=== PATIENT | male | born 1955 | race African-American/Black ===

== ENCOUNTER 2020-01-28 00:47 | Emergency (ER) | payer MEDICARE, OTHER ==
[~2020-01-28] VITALS: Ht 172.7 cm; Wt 84.8 kg
[~2020-01-28 00:47] MED LIST: CYCL50TA PO; DEXA4TAB PO; DICL100G54 TP; FERR-36 PO; FURO40TA4 PO; GABA25PO15 MC; GABA600T7 PO; HYDR-2761 PO; HYDR-3164 PO; LEVO0.5P MC; LEVO100T5 PO; LEVO150T5 PO; LIDO700A4 TP; MIDO10TA PO; NORT10CA PO; NYST100054 PO; OCTR50DI SQ; OPIU10TI PO; OXYC10TA PO; PROC25SU21 RC; immodium PO
[2020-01-28 00:52] VITALS: BP 165/88
[2020-01-28] MEDS ORDERED: LIDOCAINE 2% 20 ML VIAL. ONE (01:40)
[2020-01-28] MEDS ORDERED: BUPIVACAINE MPF 0.5% 30 ML VIAL. INJ ONE (02:00)
[2020-01-28] MEDS ORDERED: LIDOCAINE 2% 20 ML VIAL. IJ ONE (02:00)
[2020-01-28] MEDS ORDERED: NEOMY/BACITR/POLYMYXIN OINT PACKET. TP ONE ×2 (02:05→03:00)
--- NOTE | 2020-01-28 02:27 | PHYS DOC ---
Past Medical History Past Medical History: Cancer, Hypertension Additional Past Medical Histor: chronic diarrhea, amylodosis,pt reports that he is currently on chemotherpy Past Surgical History: Cancer Surgery Additional Past Surgical Histo: CARPAL TUNNEL, THYROID Smoking Status: Never Smoker Alcohol Use: None Drug Use: None General Adult EDM: Chief Complaint: LACERATION/AVULSION HPI: HPI: 64-year-old male past medical history of hyperlipidemia, amyloidosis, lower extremity neuropathy and prediabetes, presents to the ED with complaints of " I caught the supervisor grips's knife with knee," just prior to arrival. States he was using a serrated supervisor grips's knife when he accidentally lost control of it, tried to stopped it from hitting his feet with his knee. Denies any knee dislocation, hyperflexion or hyperextension. Reports tetanus was updated 3 years ago by his primary care physician Dr. Razo. No h/o transfusions. ROS: No associated fever, chills, cough, dyspnea, sore throat, nausea, vomiting, chest pain, sensory, motor deficits or neuro deficits. Current Medications: Current Medications Medications (Trade) Dose Ordered Sig/Lauren Start Time Stop Time Status Last Admin Dose Admin Bupivacaine HCl (Sensorcaine Mpf 0.5%) 30 ml 1X ONCE 01/28/20 02:00 01/28/20 02:01 DC Lidocaine HCl 20 ml 1X ONCE 01/28/20 02:00 01/28/20 02:01 DC Neomycin/ Polymyxin/ Bacitracin (Triple Antibiotic Ointment) 1 pkt STK-MED ONCE 01/28/20 02:05 01/28/20 02:06 DC Allergies: Allergies: Allergies Coded Allergies Type Severity Reaction Last Updated Verified No Known Drug Allergies 09/24/13 No Physical Exam: PE: Constitutional: Well developed, well nourished, no acute distress, non-toxic appearance. [] HENT: Normocephalic, atraumatic, bilateral external ears normal, oropharynx moist, no oral exudates, nose normal. [] Eyes: EOMI, conjunctiva normal, no discharge. [] Neck: Normal range of motion, no tenderness, supple, no stridor. [] Cardiovascular:Heart rate regular rhythm, no murmur [] Lungs & Thorax: Bilateral breath sounds clear to auscultation [] Abdomen: Bowel sounds normal, soft, no tenderness, no masses, no pulsatile masses. [] Skin: Warm, dry, no erythema, no rash. [] Back: No tenderness, no CVA tenderness. [] Extremities: No tenderness, no cyanosis, no clubbing, ROM intact, no edema, 7 cm left anterior knee laceration over patella (FROM), small but deep arteriole bleeding Neurologic: Alert and oriented X 3, normal motor function, normal sensory function, no focal deficits noted. [] Psychologic: Affect normal, judgement normal, mood normal. [] Current Patient Data: Vital Signs: Vital Signs Date Time Temp Pulse Resp B/P (MAP) Pulse Ox O2 Delivery O2 Flow Rate FiO2 01/28/20 00:52 96.7 71 16 165/88 (113) 97 Room Air 96.7 EKG: EKG: [] Radiology/Procedures: Radiology/Procedures: Indication: left knee laceration Procedure: The patient was placed in the appropriate position and anesthesia around the right knee. Small arteriole bleeding deep -unsuccessful figure 8 stitch. The area was then copiously irrigated. The laceration was closed with 4- 0 prolene, #12. The wound area was then dressed with triple abx and pressure dressings. Hemostasis achieved Total repaired wound length: 7cm The patient tolerated the procedure Complications: None Impression: Left knee laceration s/p repair with sterile dressings. Suture removal in 7-10 days. WIll start on keflex. Xray wnl. Followup with pmd in 24-28 hours. All of pts' questions were answered and pt was stable at time of discharge.Out pt ortho info given. Low suspicion for life threatening processes at this time (hemorrhage, dislocation/popliteal a injury, fx, etc). Course & Med Decision Making: Course & Med Decision Making Pertinent Labs and Imaging studies reviewed. (See chart for details) [] Dragon Disclaimer: Dragon Disclaimer: This electronic medical record was generated, in whole or in part, using a voice recognition dictation system. Departure Departure Impression: Primary Impression: Laceration of knee, left Disposition: 01 HOME, SELF-CARE Condition: STABLE Referrals: NO PCP (PCP) EDA CAMPUZANO MD [facility] Patient Instructions: Laceration Care, Adult Additional Instructions: EMERGENCY DEPARTMENT GENERAL DISCHARGE INSTRUCTIONS Thank you for coming to [facility] Emergency Department (ED) today and trusting us with you care. We trust that you had a positivie experience in our Emergency Department. If you wish to speak to the department management, you may call the sirector at [phone]. YOUR FOLLOW UP INSTRUCTIONS ARE FOLLOWS: 1. Do you have a private Doctor? If you do not have a private doctir, please ask for a resource list of physicians or clinics that may be able to assist you with follow up care. 2. The Emergency Physicain has interpreted your x-rays. The X-Ray specialist will also review them. If there is a change in the findingd, you will be notified in 48 hours when at all possible. 3. A lab test or culture has been done, your results will be reviewed and you will be notified if you need a change in treatment. ADDITIONAL INSTRUCTIONS AND INFORMATION: 1. Your care today has been supervised by a physician who is specially trained in emergency care. Many problems require more than one evaluation for a complete diagnosis and treatment. We recommend that you schedule your follow up appointment as recommended to ensure complete treatment of you illness or injury. If you are unable to obtain follow up care and continue to have a problem, or if your consition worsens, we recommend that you return to the ED. 2. We are not able to safelymdetermine your condition over the phone nor are we able to give sound medical advice over the phone. For these safety reasons, if you call for medical advice we will ask you to come to the ED for further evaluation. 3. If you have any questions regarding these discharge instructions please call the ED at [phone]. SAFETY INFORMATION: In the interest of safety, wellness, and injury prevention; we encourage you to wear your sealbelt, if you smoke; quite smoking, and we encourage family to use a protective helmet for bicycling and other sporting events that present an increased risk for head injusry. IF YOUR SYMPTOMS WORSEN OR NEW SYMPTOMS DEVELOP, OR YOU HAVE CONCERNS ABOUT YOUR CONDITION; OR IF YOUR CONDITION WORSENS WHILE YOU ARE WAITING FOR YOUR FOLLOW UP APPOINTMENT; EITHER CONTACT YOUR PRIMARY CARE DOCTOR, THE PHYSICIAN WHOSE NAME AND NUMBER YOU WERE GIVEN, OR RETURN TO THE ED IMMEDIATELY. Scripts Cephalexin (KEFLEX) 500 Mg Capsule 2 CAP PO Q12HR, #40 CAP Prov: PHILIP FELICIANO DO 01/28/20 Justicifation of Admission Dx: Justifications for Admission: Justification of Admission Dx: N/A PHILIP FELICIANO DO Jan 28, 2020 02:27
--- NOTE | 2020-01-28 02:44 | RAD ---
Left knee 3 views. HISTORY: Knife injury to knee 3 views were taken of the left knee. There is no acute fracture. There is no osseous abnormality. A joint effusion is not definitely identified. IMPRESSION: 1. No acute osseous abnormality noted in the left knee. Electronically signed by: Ángel Barr MD (01/28/2020 2:42 AM) [id number]
[2020-01-28] MEDS ORDERED: CEPH-264 PO (03:02)
== END 2020-01-28 03:10 | disposition home or self-care (01) ==
LOC: ER 00:47
DX: S81.012A Laceration without foreign body, left knee, initial encounter (principal); I10 Essential (primary) hypertension; E78.5 Hyperlipidemia, unspecified; W26.0XXA Contact with knife, initial encounter; Y93.89 Activity, other specified; Y92.89 Other specified places as the place of occurrence of the external cause; Y99.8 Other external cause status
CPT/HCPCS: 12002; 73562; 99283; J3490